=== PATIENT | male | born 1990 | race American Indian/Alaskan Native ===

== ENCOUNTER 2017-04-05 02:26 | Emergency (ER) | payer SELFPAY ==
--- NOTE | 2017-04-05 02:56 | C.PDOC ---
History Of Present Illness pt states he smoked k2. Was brought by police for bizarre behavior. pt now calm , cooperative, states he wants to sleep. denies any suicidal or homicidal ideation Time Seen by Provider: 04/05/17 02:56 Chief Complaint (Nursing): Substance Abuse Past Medical History Reviewed: Historical Data, Nursing Documentation, Vital Signs Vital Signs: Last Vital Signs Temp 97.9 F 04/05/17 02:46 Pulse 106 H 04/05/17 02:46 Resp 18 04/05/17 02:46 BP 108/65 04/05/17 02:46 Pulse Ox 100 04/05/17 03:09 - Medical History PMH: HIV Family History: States: No Known Family Hx - Social History Hx Alcohol Use: No Hx Substance Use: Yes - Immunization History Hx Tetanus Toxoid Vaccination: No Hx Influenza Vaccination: No Hx Pneumococcal Vaccination: No Review Of Systems Constitutional: Negative for: Fever, Chills Cardiovascular: Negative for: Chest Pain Respiratory: Negative for: Shortness of Breath Gastrointestinal: Negative for: Nausea, Vomiting, Abdominal Pain Genitourinary: Negative for: Dysuria Skin: Negative for: Rash Neurological: Negative for: Weakness Psych: Positive for: Anxiety. Negative for: Suicidal ideation Physical Exam - Physical Exam Appears: Non-toxic Skin: Warm, Dry Head: Normacephalic Oral Mucosa: Moist Neck: Supple Chest: Symmetrical Cardiovascular: Rhythm Regular Respiratory: No Rales, No Rhonchi, No Wheezing Gastrointestinal/Abdominal: Soft, No Tenderness, No Distention Back: No CVA Tenderness Extremity: Normal ROM Extremity: Bilateral: Atraumatic, Normal ROM Neurological/Psych: Oriented x3, Normal Speech, Normal Cognition Gait: Steady ED Course And Treatment O2 Sat by Pulse Oximetry: 100 Pulse Ox Interpretation: Normal Reevaluation Time: 05:26 Reassessment Condition: Improved ED OBSERVATION Date of observation admission: 04/05/17 Time of observation admission: 03:08 - Observation admission statement Patient is being placed in observation because:: smoked k2 - Goals of Observation Goals of observation are:: reassessment - Progress Note Progress Note: 04/05/17 03:08 vitals stable Disposition Counseled Patient/Family Regarding: Studies Performed, Diagnosis, Need For Followup - Disposition Referrals: [facility] [Outside] Disposition: HOME/ ROUTINE Disposition Time: 02:56 Condition: FAIR Instructions: Cannabis Abuse (ED) - Clinical Impression Clinical Impression: Drug abuse
[2017-04-05 05:45] VITALS: BP 122/68; PULSE 98; RESP 14; TEMP 98.3; O2SAT 98
== END 2017-04-05 06:22 | disposition home or self-care (01) ==
LOC: C.ER 02:26 → EDBD 02:26 → C.ER 06:22
DX: F12.10 Cannabis abuse, uncomplicated (principal)